=== PATIENT | female | born 1980 | race African-American/Black ===

== ENCOUNTER 2016-12-22 16:01 | Inpatient (IN) | payer OTHER ==
[2016-12-22 17:39] VITALS: BMI 33.4
--- NOTE | 2016-12-22 20:18 | HP ---
CIWA Score - CIWA Score Nausea/Vomitin-Mild Nausea/No Vomiting Muscle Tremors: 3 Anxiety: 3 Agitation: 3 Paroxysmal Sweats: 2 Orientation: 0-Oriented Tacttile Disturbances: 0-None Auditory Disturbances: 0-None Visual Disturbances: 1-Very Mild Sensitivity Headache: 2-Mild CIWA-Ar Total Score: 15 Admission ROS BHS - HPI Chief Complaint: WITHDRAWAL SYMPTOMS Allergies/Adverse Reactions: Allergies Allergy/AdvReac Type Severity Reaction Status Date / Time banana Allergy Severe Swelling Verified 12/22/16 19:16 egg Allergy Severe Vomiting Verified 12/22/16 19:16 History of Present Illness: 36 Y.O. WOMAN WITH AN EXTENSIVE HISTORY OF ALCOHOL AND PCP DEPENDENCE IS HERE FOR DETOX. THIS IS HER FIRST ADMISSION TO [facility] DETOX BUT REPORTS SHE COMPLETED DETOX AT OTHER FACILITIES. SHE DOES NOT HAVE A SIGNIFICANT PERIOD OF SOBRIETY. Exam Limitations: Intoxication - Ebola screening Have you traveled outside of the country in the last 21 days: No Have you had contact with anyone from an Ebola affected area: No Have you been sick,other than usual withdrawal symptoms: No Do you have a fever: No - Review of Systems Constitutional: Loss of Appetite, Changes in sleep, Unintentional Wgt. Loss EENT: reports: Tearing Respiratory: reports: No Symptoms reported Cardiac: reports: No Symptoms Reported GI: reports: No Symptoms Reported : reports: No Symptoms Reported Musculoskeletal: reports: No Symptoms Reported Integumentary: reports: No Symptoms Reported Neuro: reports: Tremors Endocrine: reports: No Symptoms Reported Hematology: reports: Anemia (SICKLE CELL TRAIN & MAGO) Psychiatric: reports: Orientated x3, Depressed, other (SCHIZOPHRENIA) Other Systems: Reviewed and Negative Patient History - Patient Medical History Hx Anemia: Yes (MAGO & SICKLE CELL TRAIT ) Hx Asthma: No Hx Chronic Obstructive Pulmonary Disease (COPD): No Hx Cancer: No Hx Cardiac Disorders: No Hx Congestive Heart Failure: No Hx Hypertension: No Hx Hypercholesterolemia: No Hx Pacemaker: No HX Cerebrovascular Accident: No Hx Seizures: No Hx Dementia: No Hx Diabetes: No Hx Gastrointestinal Disorders: No Hx Liver Disease: No Hx Genitourinary Disorders: No Hx Sexually Transmitted Disorders: No Hx Renal Disease (ESRD): No Hx Thyroid Disease: No Hx Human Immunodeficiency Virus (HIV): No Hx Hepatitis C: No Hx Depression: Yes Hx Suicide Attempt: Yes (2009-ATTEMPTED TO JUMP IN FRONT OF A TRAIN) Hx Bipolar Disorder: No Hx Schizophrenia: Yes - Patient Surgical History Past Surgical History: No Hx Neurologic Surgery: No Hx Cataract Extraction: No Hx Cardiac Surgery: No Hx Lung Surgery: No Hx Breast Surgery: No Hx Breast Biopsy: No Hx Abdominal Surgery: No Hx Appendectomy: No Hx Cholecystectomy: Yes (1995) Hx Genitourinary Surgery: No Hx Section: Yes (3 C-SECTIONS) Hx Orthopedic Surgery: No Anesthesia Reaction: No - PPD History Previous Implant?: Yes Documented Results: Negative w/o proof PPD to be Administered?: Yes - Reproductive History Patient is a Female of Child Bearing Age (11 -55 yrs old): Yes Last Menstrual Period: 12/04/16 Patient : No - Smoking Cessation Smoking history: Current every day smoker Have you smoked in the past 12 months: Yes Aproximately how many cigarettes per day: 10 Hx Chewing Tobacco Use: No Initiated information on smoking cessation: Yes 'Breaking Loose' booklet given: 12/22/16 - Substance & Tx. History Hx Alcohol Use: Yes Hx Substance Use: Yes Substance Use Type: Alcohol, Tranquilizers Hx Substance Use Treatment: Yes (DETOX & REHAB (DOEN'T RECALL WHERE & WHEN SHE WAS LAST ADMITTED)) - Substances Abused Alcohol Route: Oral Frequency: 3-6 times per week Amount used: BEER- 1 CASE Age of first use: 10 Date of Last Use: 12/22/16 PCP Route: Smoking Frequency: Daily Amount used: 10 BAGS Age of first use: 18 Date of Last Use: 12/21/16 Family Disease History - Family Disease History Family Disease History: Diabetes: Grandparent, Brother Admission Physical Exam [facility] - Vital Signs Vital Signs: Vital Signs - 24 hr 12/22/16 17:34 Temperature 98.0 F Pulse Rate 100 H Respiratory 18 Rate Blood Pressure 139/71 - Physical General Appearance: Yes: Tremorous, Sweating, Anxious HEENTM: Yes: Hearing grossly Normal, Normocephalic, Normal Voice Respiratory: Yes: Chest Non-Tender, Lungs Clear, Normal Breath Sounds, No Respiratory Distress, No Accessory Muscle Use Neck: Yes: No masses,lesions,Nodules, Trachea in good position Breast: Yes: Breast Exam Deferred Cardiology: Yes: Regular Rhythm, Regular Rate Abdominal: Yes: Non Tender, Flat, Soft Genitourinary: Yes: Other (NO COMPLAINTS REPORTED) Back: Yes: Normal Inspection Musculoskeletal: Yes: Gait Steady, Pelvis Stable Extremities: Yes: Normal Inspection, Normal Range of Motion, Non-Tender Neurological: Yes: hog trader II-XII NML intact, Alert, Normal Mood/Affect, Normal Response Integumentary: Yes: Normal Color, Dry Lymphatic: Yes: Within Normal Limits - Diagnostic (1) Alcohol dependence with uncomplicated withdrawal Current Visit: Yes Status: Chronic (2) Sickle cell trait Current Visit: Yes Status: Chronic (3) PCP dependence Current Visit: Yes Status: Chronic (4) Nicotine dependence Current Visit: Yes Status: Chronic Cleared for Admission [facility] - Detox or Rehab [facility] Level of Care: Medically Managed Detox Regimen/Protocol: Librium [facility] Breath Alcohol Content Breath Alcohol Content: 0.064 Urine Pregancy Test - Result Urine Test Results: Negative- NO Line Present Urine Drug Screen - Results Drug Screen Negative: No Urine Drug Screen Results: PCP-Phencyclidine
[2016-12-22] MEDS ORDERED: chlordiazePOXIDE HCL 25 MG CAPSULE PO PRN (20:28)
[2016-12-22] MEDS ORDERED: P-EPHED 60MG/TRIPROLIDI 2.5MG TABLET PO PRN (20:28)
[2016-12-22] MEDS ORDERED: NICOTINE POLACRILEX 2 MG GUM BC PRN (20:28)
[2016-12-22] MEDS ORDERED: guaiFENesin/D-METHORPHAN HB 10 ML UNIT-DOSE CUPS PO PRN (20:28)
[2016-12-22] MEDS ORDERED: IBUPROFEN 400 MG TABLET (FP) PO PRN (20:28)
[2016-12-22] MEDS ORDERED: chlordiazePOXIDE HCL 25 MG CAPSULE PO ONE (20:28)
[2016-12-22] MEDS ORDERED: LOPERAMIDE HCL 2 MG CAPSULE PO PRN (20:28)
[2016-12-22] MEDS ORDERED: ACETAMINOPHEN 325 MG TABLET (FP) PO PRN (20:28)
[2016-12-22] MEDS ORDERED: MAGNESIUM HYDROX 2400MG/30ML ORAL SUSPENSION 30 ML CUP PO PRN (20:28)
[2016-12-22] MEDS ORDERED: diphenhydrAMINE HCL 50 MG CAPSULE PO PRN (20:28)
[2016-12-22] MEDS ORDERED: MENTHOL/PHENOL 1 EACH UD MM PRN (20:28)
[2016-12-22] MEDS ORDERED: MAG HYDROX/AL HYDROX/SIMETH 30 ML UNIT-DOSE CUP PO PRN (20:28)
[2016-12-22] MEDS ORDERED: MAGNESIUM CITRATE 300 ML BOTTLE PO PRN (20:28)
[2016-12-22] MEDS ORDERED: hydrOXYzine PAMOATE 50 MG CAPSULE (FP) PO PRN (20:28)
[2016-12-22] MEDS: THIAMINE HCL 100 MG TABLET (FP) PO SCH (21:49)
[2016-12-22] MEDS: chlordiazePOXIDE HCL 25 MG CAPSULE PO SCH (22:24)
[2016-12-22 23:22] LABS: URINE APPEARANCE CLEAR; URINE BILIRUBIN NEGATIVE (NEGATIVE); URINE BLOOD NEGATIVE (NEGATIVE); URINE COLOR YELLOW; URINE GLUCOSE (UA) NEGATIVE (NEGATIVE); URINE KETONE NEGATIVE (NEGATIVE); URINE LEUK ESTERASE NEGATIVE (NEGATIVE); URINE NITRITE NEGATIVE (NEGATIVE); URINE PROTEIN NEGATIVE (NEGATIVE); URINE UROBILINOGEN NEGATIVE E.U./dl (0.2-1.0)
[2016-12-23] MEDS: chlordiazePOXIDE HCL 25 MG CAPSULE PO SCH ×4 (06:03→22:21)
[2016-12-23 09:50] LABS: MCHC 32.9 g/dl (32.0-36.0); MEAN CELL VOLUME 85.1 fl (80-96); MEAN PLT VOLUME 8.8 fl (7.5-11.1); PLATELET COUNT 195 K/MM3 (134-434); RDW 17.1 % (11.6-15.6); WHITE BLOOD COUNT 8.9 K/mm3 (4.0-10.0)
[2016-12-23 09:53] LABS: ALBUMIN 3.2 g/dl (3.4-5.0); ALK PHOS 67 U/L (45-117); ANION GAP 6 (8-16); BILIRUBIN,TOTAL 1.1 mg/dL (0.2-1.0); CALCIUM 8.6 mg/dL (8.5-10.1); CO2 30 mmol/L (21-32); CREATININE 0.6 mg/dL (0.55-1.02); GLUCOSE,RANDOM 81 mg/dL (74-106); SGOT/AST 59 U/L (15-37); SGPT/ALT 123 U/L (12-78); TOT PROT 6.4 g/dl (6.4-8.2)
--- NOTE | 2016-12-23 10:42 | PN ---
S CIWA - CIWA Score Nausea/Vomitin Muscle Tremors: 2 Anxiety: 3 Agitation: 2 Paroxysmal Sweats: 3 Orientation: 0-Oriented Tacttile Disturbances: 1-Very Mild Itch/Numbness Auditory Disturbances: 0-None Visual Disturbances: 0-None Headache: 0-None Present CIWA-Ar Total Score: 13 S Progress Note (SOAP) Subjective: interrupted sleep, sweats Objective: 12/23/16 10:40 Vital Signs Temperature 96.4 F L 12/23/16 09:39 Pulse Rate 84 12/23/16 09:39 Respiratory Rate 18 12/23/16 09:39 Blood Pressure 123/64 12/23/16 09:39 O2 Sat by Pulse Oximetry (%) Laboratory Tests 12/22/16 12/23/16 12/23/16 23:05 07:00 07:00 WBC 8.9 RBC 4.15 Hgb 11.6 Hct 35.3 MCV 85.1 MCHC 32.9 RDW 17.1 H Plt Count 195 MPV 8.8 Sodium 143 Potassium 3.6 Chloride 107 Carbon Dioxide 30 Anion Gap 6 L BUN 7 Creatinine 0.6 Creat Clearance w eGFR > 60 Random Glucose 81 Calcium 8.6 Total Bilirubin 1.1 H AST 59 H ALT 123 H Alkaline Phosphatase 67 Total Protein 6.4 Albumin 3.2 L Urine Color Yellow Urine Appearance Clear Urine pH 5.0 Ur Specific [place] 1.015 Urine Protein Negative Urine Glucose (UA) Negative Urine Ketones Negative Urine Blood Negative Urine Nitrite Negative Urine Bilirubin Negative Urine Urobilinogen Negative Ur Leukocyte Esterase Negative pt aox3 in nad ambulating Assessment: 12/23/16 10:41 withdrawal sx;s elevated transaminases Plan: cont. detox increase fluids d/c tylenol repeat sgot/sgpt
[2016-12-23] MEDS: PRENATAL VITAMINS W/ FOLIC ACID TABLET (FP) PO SCH (10:51)
--- NOTE | 2016-12-23 14:46 | EKG ---
Test Reason : Blood Pressure : / mmHG Vent. Rate : 085 BPM Atrial Rate : 085 BPM P-R Int : 122 ms QRS Dur : 084 ms QT Int : 388 ms P-R-T Axes : 035 041 026 degrees QTc Int : 461 ms NORMAL SINUS RHYTHM NORMAL ECG NO PREVIOUS ECGS AVAILABLE Confirmed by SERGEY OLIVEIRA, SHIELA ([id number]) on 12/23/2016 2:46:22 PM Referred By: Kevin Hardy Confirmed By:SHIELA RINCON MD
[2016-12-23] MEDS: THIAMINE HCL 100 MG TABLET (FP) PO SCH (22:21)
[2016-12-24] MEDS: chlordiazePOXIDE HCL 25 MG CAPSULE PO SCH ×3 (06:40→18:27)
--- NOTE | 2016-12-24 09:28 | CONSULT ---
[facility] Psychiatric Consult - Data Date of interview: 12/24/16 Admission source: [facility] Identifying data: This is 36 years old female with psychiatric hospitalization history intoxicated with: Alcohol, PCP, Nicotine Substance Abuse History: - Smoking Cessation. Smoking history: Current every day smoker. Have you smoked in the past 12 months: Yes. Aproximately how many cigarettes per day: 10. Hx Chewing Tobacco Use: No. Initiated information on smoking cessation: Yes. 'Breaking Loose' booklet given: 12/22/16. - Substance & Tx. History. Hx Alcohol Use: Yes. Hx Substance Use: Yes. Substance Use Type : Alcohol, Tranquilizers. Hx Substance Use Treatment: Yes (DETOX & REHAB (DOEN' T RECALL WHERE & WHEN SHE WAS LAST ADMITTED)). - Substances Abused. Alcohol. Route: Oral. Frequency: 3-6 times per week. Amount used: BEER- 1 CASE. Age of first use: 10. Date of Last Use: 12/22/16. PCP. Route: Smoking. Frequency: Daily. Amount used: 10 BAGS. Age of first use: 18. Date of Last Use: 12/21/16 Medical History: HTN, Syncope history, Asthma, Aethritis, GERD Psychiatric History: Patient reprots history of Schizophrenia with most recent psychiatric admission on more then 10 years ago, reports taking prior to admsisioin: Risperdal 2ng po bid. Celexa 20mg poqd Physical/Sexual Abuse/Trauma History: Denies Additional Comment: Risperdal 2ng po bid. Celexa 20mg poqd Mental Status Exam - Mental Status Exam Alert and Oriented to: Person Cognitive Function: Fair Patient Appearance: Unkempt Mood: Sad Affect: Flat Patient Behavior: Sedated Speech Pattern: Delayed Voice Loudness: Mildly Soft/Quiet Thought Process: Circumstantial Thought Disorder: Being Controlled Hallucinations: Denies Suicidal Ideation: Denies Homicidal Ideation: Denies Insight/Judgement: Fair Sleep: Difficulty falling asleep Appetite: Weight gain Muscle strength/Tone: Mild Hypotonicity Gait/Station: Shuffling Additional Comments: Risperdal 2ng po bid. Celexa 20mg poqd Psychiatric Findings - Problem List ([place] 1, 2,3) (1) Alcohol dependence with uncomplicated withdrawal Current Visit: Yes Status: Chronic (2) Nicotine dependence Current Visit: Yes Status: Chronic (3) PCP dependence Current Visit: Yes Status: Chronic (4) Paranoid schizophrenia Current Visit: Yes Status: Acute - Initial Treatment Plan Initial Treatment Plan: Risperdal 2ng po bid. Celexa 20mg poqd
[2016-12-24] MEDS: risperiDONE 2 MG TABLET PO SCH ×2 (10:27→23:49)
[2016-12-24] MEDS: CITALOPRAM HYDROBROMIDE 20 MG TABLET (FP) PO SCH (10:27)
[2016-12-24] MEDS: PRENATAL VITAMINS W/ FOLIC ACID TABLET (FP) PO SCH (10:27)
--- NOTE | 2016-12-24 13:00 | PN ---
[facility] CIWA - CIWA Score Nausea/Vomitin-Mild Nausea/No Vomiting Muscle Tremors: 2 Anxiety: 2 Agitation: 2 Paroxysmal Sweats: 3 Orientation: 0-Oriented Tacttile Disturbances: 1-Very Mild Itch/Numbness Auditory Disturbances: 0-None Visual Disturbances: 0-None Headache: 0-None Present CIWA-Ar Total Score: 11 S Progress Note (SOAP) Subjective: feeling better today , has sweats Objective: 12/24/16 12:59 Vital Signs Temperature 98.1 F 12/24/16 09:54 Pulse Rate 89 12/24/16 09:54 Respiratory Rate 16 12/24/16 09:54 Blood Pressure 118/64 12/24/16 09:54 O2 Sat by Pulse Oximetry (%) Laboratory Tests 12/22/16 12/23/16 12/23/16 23:05 07:00 07:00 WBC 8.9 RBC 4.15 Hgb 11.6 Hct 35.3 MCV 85.1 MCHC 32.9 RDW 17.1 H Plt Count 195 MPV 8.8 Sodium 143 Potassium 3.6 Chloride 107 Carbon Dioxide 30 Anion Gap 6 L BUN 7 Creatinine 0.6 Creat Clearance w eGFR > 60 Random Glucose 81 Calcium 8.6 Total Bilirubin 1.1 H AST 59 H ALT 123 H Alkaline Phosphatase 67 Total Protein 6.4 Albumin 3.2 L Urine Color Yellow Urine Appearance Clear Urine pH 5.0 Ur Specific [place] 1.015 Urine Protein Negative Urine Glucose (UA) Negative Urine Ketones Negative Urine Blood Negative Urine Nitrite Negative Urine Bilirubin Negative Urine Urobilinogen Negative Ur Leukocyte Esterase Negative RPR Titer 12/23/16 07:00 WBC RBC Hgb Hct MCV MCHC RDW Plt Count MPV Sodium Potassium Chloride Carbon Dioxide Anion Gap BUN Creatinine Creat Clearance w eGFR Random Glucose Calcium Total Bilirubin AST ALT Alkaline Phosphatase Total Protein Albumin Urine Color Urine Appearance Urine pH Ur Specific [place] Urine Protein Urine Glucose (UA) Urine Ketones Urine Blood Urine Nitrite Urine Bilirubin Urine Urobilinogen Ur Leukocyte Esterase RPR Titer Nonreactive pt aox3 in nad ambulating Assessment: 12/24/16 12:59 withdrawal sx's elevated transaminases Plan: cont. detox increase fluids f/up pending labs
[2016-12-24] MEDS: chlordiazePOXIDE 5 MG CAPSULE PO SCH (23:49)
[2016-12-24] MEDS: THIAMINE HCL 100 MG TABLET (FP) PO SCH (23:50)
[2016-12-25] MEDS: chlordiazePOXIDE 5 MG CAPSULE PO SCH ×3 (06:30→20:20)
[2016-12-25] MEDS: risperiDONE 2 MG TABLET PO SCH ×2 (10:15→22:18)
[2016-12-25] MEDS: CITALOPRAM HYDROBROMIDE 20 MG TABLET (FP) PO SCH (10:15)
[2016-12-25] MEDS: PRENATAL VITAMINS W/ FOLIC ACID TABLET (FP) PO SCH (10:15)
--- NOTE | 2016-12-25 12:40 | PN ---
BHS Progress Note (SOAP) Subjective: sweats, feeling sedated with librium Objective: 12/25/16 12:37 Vital Signs Temperature 96.6 F L 12/25/16 09:45 Pulse Rate 87 12/25/16 09:45 Respiratory Rate 20 12/25/16 09:45 Blood Pressure 119/73 12/25/16 09:45 O2 Sat by Pulse Oximetry (%) Laboratory Tests 12/22/16 12/23/16 12/23/16 23:05 07:00 07:00 WBC 8.9 RBC 4.15 Hgb 11.6 Hct 35.3 MCV 85.1 MCHC 32.9 RDW 17.1 H Plt Count 195 MPV 8.8 Sodium 143 Potassium 3.6 Chloride 107 Carbon Dioxide 30 Anion Gap 6 L BUN 7 Creatinine 0.6 Creat Clearance w eGFR > 60 Random Glucose 81 Calcium 8.6 Total Bilirubin 1.1 H AST 59 H ALT 123 H Alkaline Phosphatase 67 Total Protein 6.4 Albumin 3.2 L Urine Color Yellow Urine Appearance Clear Urine pH 5.0 Ur Specific [place] 1.015 Urine Protein Negative Urine Glucose (UA) Negative Urine Ketones Negative Urine Blood Negative Urine Nitrite Negative Urine Bilirubin Negative Urine Urobilinogen Negative Ur Leukocyte Esterase Negative RPR Titer 12/23/16 07:00 WBC RBC Hgb Hct MCV MCHC RDW Plt Count MPV Sodium Potassium Chloride Carbon Dioxide Anion Gap BUN Creatinine Creat Clearance w eGFR Random Glucose Calcium Total Bilirubin AST ALT Alkaline Phosphatase Total Protein Albumin Urine Color Urine Appearance Urine pH Ur Specific [place] Urine Protein Urine Glucose (UA) Urine Ketones Urine Blood Urine Nitrite Urine Bilirubin Urine Urobilinogen Ur Leukocyte Esterase RPR Titer Nonreactive pt sleepy but responding appropriately no sweats or tremors 12/25/16 12:39 Assessment: 12/25/16 12:38 withdrawal sx's mild sedation -librium Plan: cont. detox increase fluids if feeling too sedated pt may skip dose of lubrium
[2016-12-25 21:57] VITALS: PULSE 90
[2016-12-25] MEDS: chlordiazePOXIDE HCL 10 MG CAPSULE PO SCH (22:18)
[2016-12-25] MEDS: THIAMINE HCL 100 MG TABLET (FP) PO SCH (22:18)
[2016-12-26] MEDS: chlordiazePOXIDE HCL 10 MG CAPSULE PO SCH (05:39)
[2016-12-26 07:03] VITALS: BP 114/63; TEMP 99.5
[2016-12-26] MEDS: risperiDONE 2 MG TABLET PO SCH (09:29)
[2016-12-26] MEDS: CITALOPRAM HYDROBROMIDE 20 MG TABLET (FP) PO SCH (09:29)
[2016-12-26] MEDS: PRENATAL VITAMINS W/ FOLIC ACID TABLET (FP) PO SCH (09:29)
--- NOTE | 2016-12-26 10:43 | DS ---
[facility] Detox Discharge Summary Admission Date: 12/22/16 Discharge Date: 12/26/16 - History Present History: Alcohol Dependence, Pcp Dependence Pertinent Past History: Schizophrenia - Physical Exam Results Vital Signs: Vital Signs Temperature 99.5 F 12/26/16 06:00 Pulse Rate 90 12/26/16 06:00 Respiratory Rate 18 12/26/16 06:00 Blood Pressure 114/63 12/26/16 06:00 O2 Sat by Pulse Oximetry (%) Pertinent Admission Physical Exam Findings: Withdrawal sx. Laboratory Last Values WBC 8.9 K/mm3 (4.0-10.0) 12/23/16 07:00 RBC 4.15 M/mm3 (3.60-5.2) 12/23/16 07:00 Hgb 11.6 GM/dL (10.7-15.3) 12/23/16 07:00 Hct 35.3 % (32.4-45.2) 12/23/16 07:00 MCV 85.1 fl (80-96) 12/23/16 07:00 MCHC 32.9 g/dl (32.0-36.0) 12/23/16 07:00 RDW 17.1 % (11.6-15.6) H 12/23/16 07:00 Plt Count 195 K/MM3 (134-434) 12/23/16 07:00 MPV 8.8 fl (7.5-11.1) 12/23/16 07:00 Sodium 143 mmol/L (136-145) 12/23/16 07:00 Potassium 3.6 mmol/L (3.5-5.1) 12/23/16 07:00 Chloride 107 mmol/L (98-107) 12/23/16 07:00 Carbon Dioxide 30 mmol/L (21-32) 12/23/16 07:00 Anion Gap 6 (8-16) L 12/23/16 07:00 BUN 7 mg/dL (7-18) 12/23/16 07:00 Creatinine 0.6 mg/dL (0.55-1.02) 12/23/16 07:00 Creat Clearance w eGFR > 60 (>60) 12/23/16 07:00 Random Glucose 81 mg/dL (74-106) 12/23/16 07:00 Calcium 8.6 mg/dL (8.5-10.1) 12/23/16 07:00 Total Bilirubin 1.1 mg/dL (0.2-1.0) H 12/23/16 07:00 AST 59 U/L (15-37) H 12/23/16 07:00 ALT 123 U/L (12-78) H 12/23/16 07:00 Alkaline Phosphatase 67 U/L (45-117) 12/23/16 07:00 Total Protein 6.4 g/dl (6.4-8.2) 12/23/16 07:00 Albumin 3.2 g/dl (3.4-5.0) L 12/23/16 07:00 Urine Color Yellow 12/22/16 23:05 Urine Appearance Clear 12/22/16 23:05 Urine pH 5.0 (5.0-8.0) 12/22/16 23:05 Ur Specific [place] 1.015 (1.005-1.025) 12/22/16 23:05 Urine Protein Negative (NEGATIVE) 12/22/16 23:05 Urine Glucose (UA) Negative (NEGATIVE) 12/22/16 23:05 Urine Ketones Negative (NEGATIVE) 12/22/16 23:05 Urine Blood Negative (NEGATIVE) 12/22/16 23:05 Urine Nitrite Negative (NEGATIVE) 12/22/16 23:05 Urine Bilirubin Negative (NEGATIVE) 12/22/16 23:05 Urine Urobilinogen Negative E.U./dl (0.2-1.0) 12/22/16 23:05 Ur Leukocyte Esterase Negative (NEGATIVE) 12/22/16 23:05 RPR Titer Nonreactive (NONREACTIVE) 12/23/16 07:00 labs noted - Treatment Hospital Course: Detox Protocol Followed, Detoxed Safely, Responded well, Discharged Condition Good, Rehab Referral Accepted Patient has Accepted a Rehab Referral to: [facility] at [facility] - Medication Discharge Medications: Ambulatory Orders Citalopram Hydrobromide [Celexa -] 20 mg PO DAILY 12/22/16 Quetiapine Fumarate [Seroquel -] 100 mg PO HS 12/22/16 Risperidone [Risperdal] 2 mg PO BID 12/22/16 Citalopram Hydrobromide [Celexa -] 20 mg PO DAILY #30 tablet 12/24/16 Risperidone [Risperdal -] 2 mg PO BID #60 tablet 12/24/16 - Diagnosis (1) Paranoid schizophrenia Status: Acute (2) Alcohol dependence with uncomplicated withdrawal Status: Acute (3) Nicotine dependence Status: Acute Qualifiers: Nicotine product type: cigarettes Substance use status: uncomplicated Qualified Code(s): F17.210 - Nicotine dependence, cigarettes, uncomplicated (4) PCP dependence Status: Acute (5) Sickle cell trait Status: Chronic - AMA Did Patient Leave Against Medical Advice: No
== END 2016-12-26 09:42 | disposition home or self-care (01) | DRG 775 ==
LOC: YASAS 16:01 → Y6N 19:13
PROVIDERS: ADMIT Internal Medicine; ATTEND Internal Medicine
PROC: HZ2ZZZZ Detoxification Services for Substance Abuse Treatment (ICD-10-PCS; principal; 2016-12-26)
DX: F10.230 Alcohol dependence with withdrawal, uncomplicated (principal); F16.20 Hallucinogen dependence, uncomplicated; F17.210 Nicotine dependence, cigarettes, uncomplicated; F20.0 Paranoid schizophrenia; D57.3 Sickle-cell trait; D50.9 Iron deficiency anemia, unspecified
CPT/HCPCS: 36415; 80053; 81003; 85027; 86593; 93005; 93010

== ENCOUNTER 2018-08-18 10:57 | Emergency (ER) | payer OTHER ==
[2018-08-18 11:33] VITALS: BMI 33.4
--- NOTE | 2018-08-18 12:12 | PDOC ---
History of Present Illness - General Chief Complaint: Migraine Headache Stated Complaint: HEADACHE Time Seen by Provider: 08/18/18 11:51 - History of Present Illness Initial Comments: 08/18/18 12:26 37 yo Female 5.5 or 6 months () with PMH Paranoid Schizophrenia, depression (denies current psyc medications), Sickle Cell trait, Gestational Diabetes, presents with complaint of unrelenting headache for one week. She states that the pain is behind her eyes on both sides. She is unable to characterize the pain as sharp or throbbing but simply states that it is "pain. " She endorses seeing her OB, Dr. Duenas, earlier this week for the same headache and was prescribed tylenol which she states is not helping her at all. She states she has never had a headache like this before or a headache that has lasted this long. She states the headache is constant, not relieve by anything, and worsened by light, loud noises, and bending over. As per chart she has a history of Alcohol and PCP use, however she denies any drug or alcohol use since being informed of her 5-6 months ago. Past History - Travel Traveled outside of the country in the last 30 days: No - Past Medical History Allergies/Adverse Reactions: Allergies Allergy/AdvReac Type Severity Reaction Status Date / Time banana Allergy Severe Swelling Verified 12/22/16 19:16 egg Allergy Severe Vomiting Verified 12/22/16 19:16 Home Medications: Ambulatory Orders Acetaminophen [Mapap] 500 mg PO ASDIR PRN 08/18/18 Ascorbic Acid [Vitamin C -] 500 mg PO DAILY 08/18/18 Ferrous Sulfate 325 mg PO TID 08/18/18 Anemia: Yes (MAGO & SICKLE CELL TRAIT ) Asthma: No Cancer: No Cardiac Disorders: No CVA: No COPD: No CHF: No Dementia: No Diabetes: Yes (GESTATIONAL) GI Disorders: No Disorders: No HTN: No Hypercholesterolemia: No Kidney Stones: No Liver Disease: No Seizures: No Thyroid Disease: No - Surgical History Abdominal Surgery: No Appendectomy: No Cardiac Surgery: No Cholecystectomy: Yes (1995) Lung Surgery: No Neurologic Surgery: No Orthopedic Surgery: No - Suicide/Smoking/Psychosocial Hx Smoking History: Never smoked Have you smoked in the past 12 months: No Number of Cigarettes Smoked Daily: 10 Information on smoking cessation initiated: No 'Breaking Loose' booklet given: 12/22/16 Hx Alcohol Use: No Drug/Substance Use Hx: No Substance Use Type: Alcohol, Tranquilizers Hx Substance Use Treatment: Yes (DETOX & REHAB (DOEN'T RECALL WHERE & WHEN SHE WAS LAST ADMITTED)) Review of Systems - Review of Systems Constitutional: Yes: Diaphoresis. No: Chills, Fever HEENTM: Yes: Tearing. No: Blurred Vision Respiratory: No: Cough, Shortness of Breath Cardiac (ROS): No: Chest Pain, Irregular Heart Rate ABD/GI: Yes: Constipated, Nausea. No: Abdominal Distended, Vomiting Musculoskeletal: Yes: Back Pain. No: Joint Swelling, Muscle Pain, Joint Stiffness Neurological: Yes: Headache, Dizziness. No: Numbness, Paresthesia, Weakness *Physical Exam - Vital Signs Last Vital Signs Temp Pulse Resp BP Pulse Ox 98.6 F 76 22 H 136/72 97 08/18/18 11:29 08/18/18 11:29 08/18/18 11:29 08/18/18 11:29 08/18/18 11:29 - Physical Exam Comments: 08/18/18 12:42 GEN: A&O, mild acute distress HEENT: PERRL, EOMI, tearing noted, moist mucus membranes, no exudate NECK: Supple, no lymphadenopathy, nontender to palpation HEART: Regular rate and rhythm, no murmurs or rubs LUNGS: CTA b/l, no wheezes ABDOMEN: Soft, nontender, appropriate for stated gestational age EXTREMITIES: No joint tenderness or swelling, no peripheral edema or calf tenderness Moderate Sedation - Procedure Monitoring Vital Signs: Procedure Monitoring Vital Signs Temperature 98.6 F 08/18/18 11:29 Pulse Rate 76 08/18/18 11:29 Respiratory Rate 22 H 08/18/18 11:29 Blood Pressure 136/72 08/18/18 11:29 O2 Sat by Pulse Oximetry (%) 97 08/18/18 11:29 ED Treatment Course - LABORATORY CBC & Chemistry Diagram: 08/18/18 13:06 08/18/18 13:06 Medical Decision Making - Medical Decision Making 08/18/18 12:46 37 yo female (5-6 months ) presents with unrelenting headache for one week which has not been relieve by Tylenol as prescribed by her OB earlier this week. Has also not had a bowel movement in about a week or week and a half, which has not been relieved with colace. Will give Reglan and Benadryl for now to attempt to control headache. Will avoid imaging at this time. 08/18/18 14:29 Pt currently without relief following Reglan and Benadryl. Pt still with complaint of pain on eye movement. Differential at this point includes migraine , less likely Dural venous sinus thrombosis, Optic neuritis. Will discuss with neurology for further recommendations. 08/18/18 15:18 Case discussed with Neurology who recommends MRI w/o contrast and MRV. Discussed with radiologist who approved the MRI. As per neurology, if MRI/MRV negative pt can go home. Pending results, patient could require observation overnight and neurological evaluation tomorrow. 08/18/18 16:58 Pt still with headache unchanged from earlier, will give 4 mg IV Morphine for pain control while pt awaits MRI 08/18/18 19:20 MRI and MRV reviewed with radiologist. Negative for venous thrombosis, hemorrhage, or mass. Of note there is mild to moderate thickening of ethmoidal sinuses and a mildly enlarged pituitary gland which is likely normal variance in a third trimester patient. Can likely d/c to home with follow up with OB and further follow up with neurology if headaches continue. *DC/Admit/Observation/Transfer Diagnosis at time of Disposition: Headache - Discharge Dispostion Disposition: HOME Condition at time of disposition: Stable Decision to Admit order: No - Referrals Referrals: Alysha Mitchell [Primary Care Provider] - 1 week Chase Chavez MD [Staff Physician] - - Patient Instructions Printed Discharge Instructions: DI for Migraine, DI for Headache Additional Instructions: You were seen in the ED for a headache which has occurred for one week. As you are a Head CT could not be performed. Your case was discussed with a neurologist who recommended an MRI of your brain to rule out any bleeding, mass or clot in your brain. The MRI did not reveal any concerning findings. You were given morphine which somewhat improved your headache. It is recommended that you continue to take tylenol for your headache. If your headache persists, you should follow up with a neurologist in the office. Your MRI did reveal a slightly enlarged pituitary gland which may be normal during . You should have a repeat MRI done within 2-3 weeks after your delivery to make sure it is not actively enlarging and is stable or improving. You should continue all of your home medications as they are prescribed. You should not begin any new medications without first speaking to your OB. You should follow up with your primary care physician within one week, and sooner if your headache persists. If you have any severe worsening of your pain, worsening vision changes, or any other concerning symptoms you should be evaluated by your doctor or return to the emergency department. Print Language: [place] - Post Discharge Activity
[2018-08-18] MEDS ORDERED: METOCLOPRAMIDE HCL INJECTION 10 MG/2 ML VIAL IVPUSH ONE (12:34)
[2018-08-18] MEDS ORDERED: METOCLOPRAMIDE HCL INJECTION 10 MG/2 ML VIAL ONE (14:08)
[2018-08-18 14:49] LABS: HEMATOCRIT 30.4 % (32.4-45.2); HEMOGLOBIN 10.5 GM/dL (10.7-15.3); MCH 30.6 pg (25.7-33.7); MCHC 34.5 g/dl (32.0-36.0); MEAN CELL VOLUME 88.7 fl (80-96); MEAN PLT VOLUME 7.5 fl (7.5-11.1); PLATELET COUNT 207 K/MM3 (134-434); RBC 3.43 M/mm3 (3.60-5.2); RDW 13.4 % (11.6-15.6); WHITE BLOOD COUNT 7.4 K/mm3 (4.0-10.0)
[2018-08-18 14:51] LABS: URINE APPEARANCE CLOUDY; URINE BILIRUBIN NEGATIVE (<2.0 mg/dL); URINE COLOR YELLOW; URINE GLUCOSE (UA) NEGATIVE (NEGATIVE); URINE KETONE NEGATIVE (NEGATIVE); URINE LEUK ESTERASE 1+ (NEGATIVE); URINE NITRITE NEGATIVE (NEGATIVE); URINE PROTEIN NEGATIVE (NEGATIVE)
[2018-08-18 15:16] LABS: ALBUMIN 3.1 g/dl (3.4-5.0); ALK PHOS 85 U/L (45-117); ANION GAP 7 MMOL/L (8-16); BILIRUBIN,TOTAL 0.6 mg/dL (0.2-1); BLOOD UREA NITROGEN 4 mg/dL (7-18); CALCIUM 8.8 mg/dL (8.5-10.1); CHLORIDE 104 mmol/L (98-107); CO2 27 mmol/L (21-32); CREATININE 0.4 mg/dL (0.55-1.3); GLUCOSE,RANDOM 85 mg/dL (74-106); POTASSIUM 3.8 mmol/L (3.5-5.1); SGOT/AST 18 U/L (15-37); SGPT/ALT 17 U/L (13-61); SODIUM 138 mmol/L (136-145); TOT PROT 6.7 g/dl (6.4-8.2)
[2018-08-18 15:21] LABS: EPI CELLS MANY /HPF (FEW); URINE BACTERIA MODERATE /hpf (NONE SEEN); URINE MUCUS RARE
--- NOTE | 2018-08-18 16:38 | PDOC ---
Attending Attestation - HPI HPI: 08/18/18 16:44 The patient is a 37-year-old female who is 5 or 6 months gestation, , with a past medical history of gestational diabetes, sickle cell trait, paranoid schizophrenia, depression (currently not on any psych meds), who presents to the ED for 1 week of headache. Patient reports that her pain is located behind the eyes bilaterally and is exacerbated by light and loud noise. Patient saw her OB doctor earlier this week who prescribed Tylenol with no relief of her symptoms. She denies experiencing a headache like this in the past. The patient denies any fever, chills, nausea, vomiting, diarrhea, or abdominal pain. She denies any chest pain or shortness of breath. Allergies: Banana, egg. Social History: Previous alcohol and PCP use (denies any use during her ). Surgical History: None reported. PCP: Dr. Alysha Mitchell OB: Dr. Duenas <Johanna Aguillon - Last Filed: 08/18/18 16:58> - Resident Resident Name: Amos Wood - ED Attending Attestation I have performed the following: I have examined & evaluated the patient, The case was reviewed & discussed with the resident, I agree w/resident's findings & plan, Exceptions are as noted - Physicial Exam PE: 08/18/18 16:59 Patient is awake and alert, well-nourished, in mild distress Normocephalic and atraumatic PERRLA, EOMI, + photophobia; + left eye pain with left lateral gaze; visual campbell are intact bilaterally Neck is supple, no meningismus cta rrr no rash Cranial nerves II through XII are grossly intact; motor is 5 of 54; no pronation drift - Medical Decision Making 08/18/18 17:01 Patient is a 37-year-old female, 4 para 3, at 6 months gestation who presents with atraumatic mostly left hemicranial headache associated with nausea , vomiting and photophobia. Patient reports no previous history of headaches in the current symptoms were not at their most intense at onset. Differential diagnosis includes migraine versus venous dural thrombosis versus hemorrhage. We will administer pain meds, will obtain MRI/MRV. <Aric Ramírez - Last Filed: 08/18/18 17:05> Attestations - Attestations 08/18/18 16:44 Documentation prepared by Johanna Aguillon, acting as medical nurse for Aric Ramírez MD. <Joahnna Aguillon - Last Filed: 08/18/18 16:58>
[2018-08-18] MEDS ORDERED: morphine CARPU-JECT 4 MG/1 ML DISP.SYRIN IVPUSH ONE (16:57)
[2018-08-18] MEDS ORDERED: morphine SULFATE 4 MG/ML VIAL ONE (17:30)
[2018-08-18] MEDS ORDERED: MAGNESIUM SULF 50% (8.12 MEQ/2 ML-1 GM VIAL) IVPB ONE (19:32)
[2018-08-18] MEDS ORDERED: MAGNESIUM 1GM/D5W - 1 GM/100 ML IVPB IVPB ONE (19:43)
[2018-08-18 22:24] VITALS: BP 112/58; PULSE 67; TEMP 99.2
== END 2018-08-18 22:35 | disposition home or self-care (01) ==
LOC: JER 10:57
PROC: 3E033GC Introduction of Other Therapeutic Substance into Peripheral Vein, Percutaneous Approach (ICD-10-PCS; principal; 2018-08-18)
PROC: 3E033NZ Introduction of Analgesics, Hypnotics, Sedatives into Peripheral Vein, Percutaneous Approach (ICD-10-PCS; 2018-08-18)
DX: O26.892 Other specified pregnancy related conditions, second trimester (principal); Z3A.00 Weeks of gestation of pregnancy not specified; R51 Headache
CPT/HCPCS: 36415; 70544-TC; 70551-TC; 80053; 81003; 81015; 85027; 96374; 96375; 99283-25

== ENCOUNTER 2018-08-20 21:28 | Emergency (ER) | payer OTHER ==
[2018-08-20 21:36] VITALS: BP 110/66; PULSE 94; TEMP 99.1; BMI 31.2
--- NOTE | 2018-08-20 21:36 | PDOC ---
History of Present Illness - General History Source: Patient Exam Limitations: No Limitations <Laverne Estevez - Last Filed: 08/20/18 23:38> <Emily Mcadams - Last Filed: 08/21/18 02:09> - General Chief Complaint: Headache Stated Complaint: Headache Time Seen by Provider: 08/20/18 21:36 Past History - Past Medical History Anemia: Yes (MAGO & SICKLE CELL TRAIT ) Asthma: No Cancer: No Cardiac Disorders: No CVA: No COPD: No CHF: No Dementia: No Diabetes: Yes (GESTATIONAL) GI Disorders: No Disorders: No HTN: No Hypercholesterolemia: No Kidney Stones: No Liver Disease: No Seizures: No Thyroid Disease: No - Surgical History Abdominal Surgery: No Appendectomy: No Cardiac Surgery: No Cholecystectomy: Yes (1995) Lung Surgery: No Neurologic Surgery: No Orthopedic Surgery: No - Reproductive History (#): 5 Para: 3 - Suicide/Smoking/Psychosocial Hx Smoking History: Never smoked Have you smoked in the past 12 months: No Number of Cigarettes Smoked Daily: 10 'Breaking Loose' booklet given: 12/22/16 Hx Alcohol Use: No Drug/Substance Use Hx: No Substance Use Type: Alcohol, Tranquilizers Hx Substance Use Treatment: Yes ([facility] (DOEN'T RECALL WHERE & WHEN SHE WAS LAST ADMITTED)) <Laverne Estevez - Last Filed: 08/20/18 23:38> <Emily Mcadams - Last Filed: 08/21/18 02:09> - Past Medical History Allergies/Adverse Reactions: Allergies Allergy/AdvReac Type Severity Reaction Status Date / Time No Known Allergies Allergy Verified 08/20/18 21:34 Home Medications: Ambulatory Orders Acetaminophen [Mapap] 500 mg PO ASDIR PRN 08/18/18 Ascorbic Acid [Vitamin C -] 500 mg PO DAILY 08/18/18 Ferrous Sulfate 325 mg PO TID 08/18/18 Vitamins (Sjr) - 1 tab PO DAILY 08/18/18 Nitrofurantoin Monohyd/M-Cryst [Macrobid -] 100 mg PO BID 5 Days #9 capsule *Physical Exam - Vital Signs Last Vital Signs Temp Pulse Resp BP Pulse Ox 99.1 F 94 H 18 110/66 100 08/20/18 21:34 08/20/18 21:34 08/20/18 21:34 08/20/18 21:34 08/20/18 21:34 <mEily Mcadams - Last Filed: 08/21/18 02:09> Moderate Sedation - Procedure Monitoring Vital Signs: Procedure Monitoring Vital Signs Temperature 99.1 F 08/20/18 21:34 Pulse Rate 94 H 08/20/18 21:34 Respiratory Rate 18 08/20/18 21:34 Blood Pressure 110/66 08/20/18 21:34 O2 Sat by Pulse Oximetry (%) 100 08/20/18 21:34 <Emily Mcadams - Last Filed: 08/21/18 02:09> ED Treatment Course - Medications Given in the ED: ED Medications Discontinued Medications Generic Name Dose Route Start Last Admin Trade Name Freq PRN Reason Stop Dose Admin Acetaminophen 1,000 mg 08/20/18 21:42 08/20/18 23:39 Ofirmev Injection - IVPB 08/20/18 21:43 Not Given ONCE ONE Diphenhydramine HCl 25 mg 08/20/18 21:46 08/20/18 23:39 Benadryl Injection - IVPUSH 08/20/18 21:47 25 mg ONCE ONE Administration Sodium Chloride 1,000 mls @ 1,000 mls/hr 08/20/18 21:42 08/20/18 23:38 Normal Saline - IV 08/20/18 22:41 1,000 mls/hr ASDIR STA Administration Metoclopramide HCl 10 mg 08/20/18 21:46 08/20/18 23:39 Reglan Injection - IVPUSH 08/20/18 21:47 10 mg ONCE ONE Administration Nitrofurantoin Macrocrystals 100 mg 08/20/18 23:41 08/21/18 01:18 Macrodantin - PO 08/20/18 23:42 100 mg ONCE STA Administration <Emily Mcadams - Last Filed: 08/21/18 02:09> Medical Decision Making - Medical Decision Making Pt was seen at bedside, also will be seen by attending Dr. Carroll. Pt presenting with complaints of headache x1 week Vitals stable, pt afebrile. Pt in NAD, normal body habitus. PE showed pt alert and oriented. 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 Eyes PERRLA, EOMI. Oropharynx without erythema or exudates. No nasal congestion , hearing intact. Clear heart sounds, S1/S2, no JVD, b/l pedal edema, or heart murmur. Clear lung sounds, no respiratory distress, wheezes, crackles, or accessory muscle use. No abdominal or CVA tenderness to palpation, no rebound, no guarding. Abdomen soft, non-distended, and with normoactive bowel sounds. Skin without jaundice or rash. Considering [vs vs] Ordered work-up including CBC, CMP, type & screen, UA, urine culture, coags. Provided 10 mg IV reglan, 1 L IV NS, and 25 mg IV benadry for improvement of headache. Pt last took tylenol 3-4 hours ago with no relief. Will continue to reassess pt and monitor for symptomatic improvement. 08/20/18 23:01 Pt refusing lab work via butterfly. When we entered the room, pt was sleeping comfortably. Pt BP stable. Will continue to monitor symptomatic improvement, but will not provide morphine as pt is second trimester and has PMH of drug abuse. Pt had UA with leuk esterase 1+ on 08/18/17 -- will send macrobid to pt pharmacy. 08/20/18 23:12 <Laverne Estevez - Last Filed: 08/20/18 23:38> *DC/Admit/Observation/Transfer <Laverne Estevez - Last Filed: 08/20/18 23:38> <Emily Mcadams - Last Filed: 08/21/18 02:09> Diagnosis at time of Disposition: UTI (urinary tract infection) Qualifiers: Urinary tract infection type: site unspecified Hematuria presence: without hematuria Qualified Code(s): N39.0 - Urinary tract infection, site not specified Headache Qualifiers: Headache type: unspecified Headache chronicity pattern: unspecified pattern - Discharge Dispostion Disposition: HOME Condition at time of disposition: Stable - Prescriptions Prescriptions: Nitrofurantoin Monohyd/M-Cryst [Macrobid -] 100 mg PO BID 5 Days #9 capsule - Referrals Referrals: Alysha Mitchell [Primary Care Provider] - - Patient Instructions Printed Discharge Instructions: DI for Urinary Tract Infection (UTI), DI for Headache Additional Instructions: You were seen in the ED for complaints of headache. In the ED you refused labwork but had a full workup 2 days ago that included head scans which did not show any significant findings aside from a small urinary tract infection. There does not appear to be an acute need for immediate hospitalization. You are advised to follow up with your Primary Care Physician within 1 week. Take over the counter Tylenol for headache relief. You were prescribed a course of antibiotics to be taken as directed. Return to the ED immediately if you experience worsening headache, changes in vision or hearing, nausea, vomiting, elevated blood pressure, vaginal bleeding, cramping or blood in urine or stool. - Post Discharge Activity
[2018-08-20] MEDS ORDERED: ACETAMINOPHEN 1000 MG/100 ML VIAL (NON FORMULARY) IVPB ONE (21:42)
[2018-08-20] MEDS ORDERED: SODIUM CHLORIDE 1,000 ML IV STA (21:42)
[2018-08-20] MEDS ORDERED: METOCLOPRAMIDE HCL INJECTION 10 MG/2 ML VIAL IVPUSH ONE (21:46)
--- NOTE | 2018-08-20 22:06 | PDOC ---
Attending Attestation - HPI HPI: 08/20/18 23:26 The patient is a 37 year old female, 6 months gestation, , with a past medical history of gestational diabetes, sickle cell trait, paranoid schizophrenia, and depression, who presents to the ER complaining of 1 week of headache. The patient states she has taken Tylenol at home with minimal improvement of the headache. The patient endorses mild nausea without vomiting and decrease in PO intake. The patient denies any sick contacts or recent travel. Denies any vision changes. Denies any neck pain or stiffness. The patient denies chest pain, shortness of breath and dizziness. Denies fever, chills, abdominal pain or cramping, vomit, diarrhea and constipation. Denies vaginal bleeding or discharge, dysuria, frequency, urgency and hematuria. Allergies: Banana, egg. Social History: Previous alcohol and PCP use (denies any use during her . Surgical History: None reported. PCP: Dr. Alysha Mitchell OB: Dr. Duenas Documentation prepared by Rufus Albarado, acting as medical technologist for Hillary Carroll MD. - Physicial Exam PE: 08/20/18 23:15 GENERAL: Awake, alert, and fully oriented, in no acute distress HEAD: No signs of trauma EYES: PERRLA, EOMI, sclera anicteric, conjunctiva clear ENT: (+) Scarred TM bilaterally. (+) Right ear canal polyp. Hearing grossly normal, nares patent, oropharynx clear without exudates. Moist mucosa NECK: Normal ROM, supple, no lymphadenopathy, JVD, or masses LUNGS: Breath sounds equal, clear to auscultation bilaterally. No wheezes, and no crackles HEART: Regular rate and rhythm, normal S1 and S2, no murmurs, rubs or gallops ABDOMEN: Soft, nontender, normoactive bowel sounds. No guarding, no rebound. No masses EXTREMITIES: Normal range of motion, no edema. No clubbing or cyanosis. No cords, erythema, or tenderness NEUROLOGICAL: Cranial nerves II through XII grossly intact. Normal speech, normal gait SKIN: Warm, Dry, normal turgor, no rashes or lesions noted. <Rufus Albarado - Last Filed: 08/20/18 23:26> - Resident Resident Name: Laverne Estevez - ED Attending Attestation I have performed the following: I have examined & evaluated the patient, The case was reviewed & discussed with the resident, I agree w/resident's findings & plan - Medical Decision Making 08/20/18 23:11 Pt is resting cmomfortably whenever I walk by the room. Once I go in and engage her, she begins writhing in pain. Pt was here 2 days ago and she was given morphine for her PORTER. We will not treat her PORTER with a narcotic, as she has a hx of drug and alcohol abuse. 08/21/18 02:03 Pt has been sleeping comfortably. SHe is feeling better and she was hydrated with 1L of NSS. Pt refused labs, as she had them done 2 days ago and all normal. <Hillary Carroll - Last Filed: 08/21/18 02:04>
[2018-08-20] MEDS ORDERED: METOCLOPRAMIDE HCL INJECTION 10 MG/2 ML VIAL ONE (23:30)
[2018-08-20] MEDS ORDERED: NITROFURANTOIN MACROCRYSTAL 50 MG CAPSULE (FP) PO STA (23:41)
[2018-08-21] MEDS ORDERED: NITROFURANTOIN MACROCRYSTAL 50 MG CAPSULE (FP) ONE (01:15)
== END 2018-08-21 03:10 | disposition home or self-care (01) ==
LOC: JER 21:28
PROC: 3E0337Z Introduction of Electrolytic and Water Balance Substance into Peripheral Vein, Percutaneous Approach (ICD-10-PCS; principal; 2018-08-20)
PROC: 3E033GC Introduction of Other Therapeutic Substance into Peripheral Vein, Percutaneous Approach (ICD-10-PCS; 2018-08-20)
PROC: 3E033GC Introduction of Other Therapeutic Substance into Peripheral Vein, Percutaneous Approach (ICD-10-PCS; 2018-08-20)
DX: O23.32 Infections of other parts of urinary tract in pregnancy, second trimester (principal); R51 Headache; O99.012 Anemia complicating pregnancy, second trimester; D50.8 Other iron deficiency anemias; Z3A.24 24 weeks gestation of pregnancy
CPT/HCPCS: 96361; 96374; 96375; 99281-25; J7030

== ENCOUNTER 2019-10-26 06:07 | Emergency (ER) | payer OTHER ==
[2019-10-26 06:41] VITALS: BP 124/74; PULSE 89; TEMP 98.2; BMI 32.2
[2019-10-26] MEDS ORDERED: KETOROLAC TROMETHAMINE 30 MG/1 ML VIAL IM ONE (10:17)
[2019-10-26] MEDS ORDERED: KETOROLAC TROMETHAMINE 30 MG/1 ML VIAL ONE (10:21)
== END 2019-10-26 10:43 | disposition home or self-care (01) ==
LOC: JER 06:07
PROC: 3E023GC Introduction of Other Therapeutic Substance into Muscle, Percutaneous Approach (ICD-10-PCS; principal; 2019-10-26)
DX: S02.2XXA Fracture of nasal bones, initial encounter for closed fracture (principal); T76.11XA Adult physical abuse, suspected, initial encounter; Y04.8XXA Assault by other bodily force, initial encounter
CPT/HCPCS: 70450-TC; 70486-TC; 71046-TC-FY; 71101-TC-RT-FY; 72125-TC; 84703; 96372; 99284-25

== ENCOUNTER 2021-04-02 09:49 | Emergency (ER) | payer OTHER ==
[2021-04-02 10:09] VITALS: PULSE 84; TEMP 97.8; BMI 31.3
[2021-04-02] MEDS ORDERED: predniSONE 20 MG TABLET (UD) PO ONE (10:34)
[2021-04-02] MEDS ORDERED: predniSONE 20 MG TABLET (UD) ONE (10:41)
[2021-04-02] MEDS ORDERED: ALBUTEROL SO4 2.5/IPRATROPIUM 0.5 INH SOL 3 ML VIAL.NEB. NEB ONE (10:42)
[2021-04-02] MEDS: ALBUTEROL SO4 2.5/IPRATROPIUM 0.5 INH SOL 3 ML VIAL.NEB. NEB SCH ×4 (10:50→11:30)
[2021-04-02 13:13] VITALS: BP 106/58
== END 2021-04-02 13:56 | disposition home or self-care (01) ==
LOC: JER 09:49
PROC: 3E0F7GC Introduction of Other Therapeutic Substance into Respiratory Tract, Via Natural or Artificial Opening (ICD-10-PCS; principal; 2021-04-02)
DX: J45.901 Unspecified asthma with (acute) exacerbation (principal)
CPT/HCPCS: 71046-TC-FY; 93005; 93010; 94640; 99284-25